=== PATIENT | male | born 1985 | race Two or more races ===

== ENCOUNTER 2016-06-09 12:40 | Emergency (ER) | payer OTHER ==
[~2016-06-09] VITALS: Ht 180.3 cm; Wt 124.7 kg
--- NOTE | 2016-06-09 13:38 | Emergency Room Report ---
History of Present Illness General Chief Complaint: Male Urogenital Problems Source: Patient Present Illness HPI 31-year-old male presents to emergency Department complaining of burning sensation in the groin x4 days. Patient states that he recently was applying a topical cream for genital warts to the entire area of his penis and testicles. Patient states that he has had burning sensation in crusting noted on the shaft of his penis in addition to a painful area to the skin of his testicles she reports 10 out of 10 pain. Denies testicular swelling. Denies history of STDs other than genital warts. Denies dysuria, hematuria, frequency or urgency denies fevers or chills. Denies swollen tender lymph nodes. Denies CP, Palpitations, LOC, AMS, dizziness, Changes in Vision, Sensation, paresthesias, or a sudden severe headache. Allergies: Coded Allergies: No Known Allergies (Unverified , 06/09/16) Patient History Past Medical History: see triage record Past Surgical History: none Pertinent Family History: none Immunizations: UTD Reviewed Nursing Documentation: PMH: Agreed, PSxH: Agreed Nursing Documentation-PMH Past Medical History: No Stated History Review of Systems All Other Systems: negative except mentioned in HPI Physical Exam Vital Signs Date Time Temp Pulse Resp B/P Pulse Ox O2 Delivery O2 Flow Rate FiO2 06/09/16 13:03 98.2 76 14 133/89 98 Room Air Sp02 EP Interpretation: reviewed, normal General Appearance: no apparent distress, alert, GCS 15, non-toxic Head: normocephalic, atraumatic Eyes: bilateral eye PERRL, bilateral eye normal inspection ENT: hearing grossly normal, normal pharynx, no angioedema, normal voice Neck: full range of motion, supple/symm/no masses Respiratory: chest non-tender, lungs clear, normal breath sounds, speaking full sentences Cardiovascular #1: regular rate, rhythm, no edema Rectal: deferred Genitourinary: normal inspection, no CVA tenderness, other - mild irritation/ erythema noted to the shaft of the penis and the skin of the testicles and inner thigh. area on the shaft with multiple small vessicles -suspicious for herpes vesicular lesions. no swelling of the testicles or testicular TTP. Musculoskeletal: back normal, gait/station normal, normal range of motion, non- tender, no calf tenderness Neurologic: alert, oriented x3, responsive, motor strength/tone normal, sensory intact, speech normal Psychiatric: judgement/insight normal, memory normal, mood/affect normal, no suicidal/homicidal ideation Skin: normal color, warm/dry, well hydrated, rash - erythema of the penis shaft , and the skin of the testicles and inner thigh. small localized area on the shaft with multiple small vessicles also noted-suspicious for herpes vesicular lesions. Lymphatic: no adenopathy Medical Decision Making PA Attestation Dr. Gaviria is my supervising Physician whom patient management has been discussed with. Diagnostic Impression: Primary Impression: Rash and nonspecific skin eruption Additional Impression: Vesicular eruption, localized ER Course Pt. presents to the ED c/o rash on genital area x 2 days. pt states he has been applying genital wart cream to the entire area of his genitals. Ddx considered but are not limited to cellulitis, scabies, shingles, varicella, dermatitis, urticaria, eczema, tinea, herpes Vital signs: are WNL, pt. is afebrile H&PE are most consistent with dermatitis, and area on the shaft with multiple small vessicles -suspicious for herpes vesicular lesions. ORDERS: none required at this time, the diagnosis is clinical ED INTERVENTIONS: None required at this time. -d/w pt. that the medication he was prescribed was only supposed to be applied directly to the warts. -d/w pt. proper follow up with his pcp. DISCHARGE: At this time pt. is stable for d/c to home. Will provide printed patient care instructions, and any necessary prescriptions. Care plan and follow up instructions have been discussed with the patient prior to discharge. Last Vital Signs Date Time Temp Pulse Resp B/P Pulse Ox O2 Delivery O2 Flow Rate FiO2 06/09/16 13:03 98.2 76 14 133/89 98 Room Air Disposition: HOME, SELF-CARE Condition: Stable Scripts Lidocaine (Lidocaine) 5 Gm Cream..g. 1 APPLIC TP QID for 4 Days, #5 GM Prov: Fior Oden 06/09/16 Bacitracin Zinc/Polymyx B Sulf (HM DOUBLE ANTIBIOTIC OINTMENT) 28.4 Gm Oint...g. 1 APPLIC TP BID, #28.4 GM Prov: Fior Oden 06/09/16 Valacyclovir Hcl* (VALTREX*) 500 Mg Tablet 1000 MG ORAL TWICE A DAY for 7 Days, #14 TAB Prov: Fior Oden 06/09/16 Referrals: [facility],REFERRING (PCP) Patient Instructions: Genital Herpes, Rash Additional Instructions: Take medications as directed. Follow up with PCP in 3-5 days Return sooner to ED if new symptoms occur, or current symptoms become worse. - Please note that this Emergency Department Report was dictated using [employer] laboratory technologist technology software, occasionally this can lead to erroneous entry secondary to interpretation by the dictation equiptment. Fior Oden Jun 09, 2016 13:38
[2016-06-09] MEDS ORDERED: VALACYCLOVIR500 MG ORAL (13:43)
[2016-06-09] MEDS ORDERED: HM DOUBLE ANT28.4 G1 TP (13:43)
[2016-06-09] MEDS ORDERED: LIDOCAINE5 GM TP (13:43)
[2016-06-09 13:57] VITALS: BP 159/80
== END 2016-06-09 13:59 | disposition home or self-care (01) ==
LOC: EMR 13:25
DX: R21 Rash and other nonspecific skin eruption (principal); R23.8 Other skin changes
CPT/HCPCS: 99284